=== PATIENT | female | born 1995 | race Caucasian/White ===

== ENCOUNTER 2023-11-25 17:01 | Emergency (ER) | payer MEDICAID ==
[~2023-11-25] VITALS: Ht 157.5 cm; Wt 55.3 kg
[2023-11-25 17:11] VITALS: O2SAT 100
[2023-11-25 18:47] VITALS: BP 101/60; PULSE 98; RESP 18; TEMP 98.4
[2023-11-25] MEDS ORDERED: IBUP-2029 MT (19:24)
== END 2023-11-25 20:05 | disposition home or self-care (01) ==
LOC: ER 17:01
DX: B34.9 Viral infection, unspecified (principal); Z20.822 Contact with and (suspected) exposure to COVID-19
CPT/HCPCS: 81025; 87804 ×2; 99283; 87426; Z7610

== ENCOUNTER 2025-05-12 11:55 | Emergency (ER) | payer MEDICAID ==
[~2025-05-12] VITALS: Ht 157.5 cm; Wt 56.0 kg
[~2025-05-12 11:55] MED LIST: IBUP-1455 MT
[2025-05-12 12:01] VITALS: O2SAT 99
[2025-05-12 12:02] VITALS: BP 122/59; PULSE 68; RESP 18; TEMP 36.7; O2SAT 100
== END 2025-05-12 14:00 | disposition left against medical advice (07) ==
LOC: ER 11:59
DX: R21 Rash and other nonspecific skin eruption (principal)
CPT/HCPCS: 99281